=== PATIENT | female | born 1930 | race African-American/Black ===

== ENCOUNTER 2019-12-03 18:07 | Inpatient (IN) ==
[2019-12-03] MEDS ORDERED: INFLUENZA VIRUS VACCINE 0.5 ML SYRINGE IM ONE (20:33)
[2019-12-03] MEDS ORDERED: ONDANSETRON 4 MG/2 ML VIAL IV PRN (21:41)
[2019-12-03] MEDS ORDERED: ALBUTEROL 2.5 MG/3 ML NEB RESP TX PRN (21:41)
[2019-12-03] MEDS ORDERED: ACETAMINOPHEN 325 MG TABLET PO PRN (21:41)
[2019-12-03] MEDS ORDERED: FUROSEMIDE 20 MG TABLET PO PRN (21:48)
[2019-12-03] MEDS ORDERED: NAPROXEN SODIUM 220 MG PO PRN (21:48)
[2019-12-03] MEDS ORDERED: PYRILAMINE PO PRN (21:48)
[2019-12-03] MEDS ORDERED: CHLOPHEDIANOL PO PRN (21:48)
[2019-12-03] MEDS ORDERED: PANTOPRAZOLE 40 MG VIAL IV SCH (22:00)
[2019-12-04] MEDS: AMOXICILLIN/CLAV 875 MG TABLET PO SCH ×2 (01:18→08:38)
[2019-12-04] MEDS ORDERED: hydrALAZINE 20 MG/1 ML VIAL IV PRN (02:44)
[2019-12-04] MEDS: MULTIVITAMIN (OCUVITE) TABLET PO SCH ×2 (08:38→21:10)
[2019-12-04] MEDS: POTASSIUM CHLORIDE 20 MEQ TABLET PO SCH (08:39)
[2019-12-04] MEDS: ASPIRIN EC 81 MG TABLET PO SCH (08:39)
[2019-12-04] MEDS: LOSARTAN 50 MG TABLET PO SCH (08:39)
[2019-12-04] MEDS: SPIRONOLACTONE 25 MG TABLET PO SCH (08:39)
[2019-12-04] MEDS: MAGNESIUM GLUCONATE 500 MG TABLET PO SCH (08:39)
[2019-12-04] MEDS: FERROUS SULFATE 325 MG TABLET PO SCH (08:40)
[2019-12-04 08:54] LABS: Basophils % 0.7 % (0.0-0.8); Eosinophils # 0.1 10*3/uL (0.0-0.87); Eosinophils % 2.4 % (0.00-10.9); Hematocrit 36.3 VOL% (35.7-47.0); Immature Granulocytes % 0.4 %; Immature Granulocytes Absolute 0.02 #; Lymphocytes % 36.3 % (21.3-54.2); Mean Corpuscular HGB Conc 30.3 GM/DL (32-36); Mean Corpuscular Volume 75.6 FL (87-102); Mean Platelet Volume 10.7 FL (9.6-12.0); Monocytes % 10.6 % (1.7-12.7); Neutrophils % 49.6 % (38.7-73.9); Platelet Count 222 T/CUMM (130-400); Red Cell Distribution Width 14.9 % (9.3-17.3); White Blood Count 5.5 T/CUMM (4-12)
[2019-12-04] MEDS ORDERED: PANTOPRAZOLE 40 MG TABLET PO SCH (09:00)
[2019-12-04 09:20] LABS: Calcium 9.1 MG/DL (8.5-10.1)
[2019-12-04 09:31] LABS: Eosinophils 4 % (0-10); Hypochromasia 1+; Lymphocytes 36 % (20-55); Platelet Estimate Adequate; Segmented Neutrophils 48 % (50-85); Total Cells Counted 100
[2019-12-04] MEDS ORDERED: FUROSEMIDE 40 MG/4 ML VIAL IV ONE (13:53)
[2019-12-04 18:44] LABS: Apearance,Urine CLEAR (Clear); Bilirubin,Urine Negative (Negative); Blood, Urine Negative (Negative); Glucose,Urine (UA) Negative (Negative); Hyaline Casts,Urine 1 /LPF (0-3); Ketones,Urine Negative (Negative); Nitrite,Urine Negative (Negative); Protein,Urine Negative; RBC,Urine 1 /HPF (0-4); Squamous Epithelial Cell,Urine Occasional /HPF (0-10); Urine Color Straw (Yellow); Urine Specific Gravity 1.005 (1.001-1.035); Urine Urobilinogen < 2.0 EU/DL (0.2-1.0); WBC,Urine 3 /HPF (0-6)
[2019-12-05 04:17] LABS: Basophils % 0.3 % (0.0-0.8); Eosinophils # 0.2 10*3/uL (0.0-0.87); Eosinophils % 2.6 % (0.00-10.9); Hematocrit 33.6 VOL% (35.7-47.0); Hemoglobin 10.5 GM/DL (12.0-16.0); Immature Granulocytes % 0.3 %; Immature Granulocytes Absolute 0.02 #; Lymphocytes # 1.9 10*3/uL (1.4-4.0); Lymphocytes % 31.4 % (21.3-54.2); Mean Corpuscular HGB Conc 31.3 GM/DL (32-36); Mean Corpuscular Volume 73.8 FL (87-102); Mean Platelet Volume 10.5 FL (9.6-12.0); Monocytes % 9.9 % (1.7-12.7); Neutrophils % 55.5 % (38.7-73.9); Platelet Count 215 T/CUMM (130-400); Red Blood Count 4.55 MC/CUMM (3.8-5.5); Red Cell Distribution Width 14.9 % (9.3-17.3); White Blood Count 6.1 T/CUMM (4-12)
[2019-12-05 04:29] LABS: Calcium 8.8 MG/DL (8.5-10.1); Osmolality,Calculated 276.8 MOS/KG (273-304)
[2019-12-05 04:45] LABS: Hypochromasia 1+; Platelet Estimate Adequate
[2019-12-05] MEDS ORDERED: FUROSEMIDE 40 MG/4 ML VIAL IV SCH (09:00)
[2019-12-05] MEDS: amLODIPine 5 MG TABLET PO SCH (09:17)
[2019-12-05] MEDS: FERROUS SULFATE 325 MG TABLET PO SCH (09:17)
[2019-12-05] MEDS: MULTIVITAMIN (OCUVITE) TABLET PO SCH ×2 (09:17→20:16)
[2019-12-05] MEDS: MAGNESIUM GLUCONATE 500 MG TABLET PO SCH (09:17)
[2019-12-05] MEDS: LOSARTAN 50 MG TABLET PO SCH (09:17)
[2019-12-05] MEDS: ASPIRIN EC 81 MG TABLET PO SCH (09:18)
[2019-12-05] MEDS: POTASSIUM CHLORIDE 20 MEQ TABLET PO SCH (09:18)
[2019-12-05] MEDS: SPIRONOLACTONE 25 MG TABLET PO SCH (18:49)
[2019-12-06] MEDS: MULTIVITAMIN (OCUVITE) TABLET PO SCH (08:28)
[2019-12-06] MEDS: MAGNESIUM GLUCONATE 500 MG TABLET PO SCH (08:28)
[2019-12-06] MEDS: ASPIRIN EC 81 MG TABLET PO SCH (08:29)
[2019-12-06] MEDS: amLODIPine 5 MG TABLET PO SCH (08:30)
[2019-12-06] MEDS: LOSARTAN 50 MG TABLET PO SCH (08:30)
[2019-12-06] MEDS: FERROUS SULFATE 325 MG TABLET PO SCH (08:30)
[2019-12-06] MEDS: POTASSIUM CHLORIDE 20 MEQ TABLET PO SCH (08:30)
[2019-12-06] MEDS ORDERED: FUROSEMIDE 40 MG TABLET PO SCH (09:00)
[2019-12-06 11:22] LABS: Calcium 9.2 MG/DL (8.5-10.1)
[2019-12-06 17:10] VITALS: BP 146/53
[2019-12-06] MEDS ORDERED: amLODIPine 5 MG TABLET PO SCH (21:00)
[2019-12-06] MEDS ORDERED: ISOSORBIDE DINITRATE 20 MG TABLET PO SCH (21:00)
[2019-12-07] MEDS ORDERED: amLODIPine 5 MG TABLET PO SCH (09:00)
== END 2019-12-06 19:08 | disposition home or self-care (01) | DRG 308 ==
LOC: SUATTDRO 20:04 → N.CC 20:04
PROVIDERS: ADMIT Internal Medicine; ATTEND Internal Medicine